=== PATIENT | female | born 1995 | race Asian ===

== ENCOUNTER 2019-09-21 14:20 | Emergency (ER) | payer BC, SELFPAY ==
[2019-09-21 14:34] VITALS: BP 101/76; PULSE 129; RESP 20; TEMP 38.8; O2SAT 99
--- NOTE | 2019-09-21 14:43 | ED.URI ---
HPI - URI/Sore Throat General Chief Complaint: Upper Respiratory Infection Stated Complaint: fever/sore throat/chills/pack Time Seen by Provider: 09/21/19 14:24 Source: patient Mode of arrival: ambulatory Limitations: no limitations History of Present Illness HPI Narrative: 24-year-old female presents to urgent care with complaints of sore throat, enlarged lymph nodes, chills, body aches, fevers, headache, bilateral ear pressure and fatigue for the past 3 days. Patient has been taking [id number] naproxen with little relief. Patient reports that she recently traveled to [place] approximately 1 week ago. Patient reports that she did have a negative COVID screen 2 days ago but feels that the test was inaccurate as she collected it herself at home. Patient reports that she is currently taking Flagyl after having an abnormal papsmear. Patient reports that she also took 500 of Zithromax and an unknown cephalosporin after having abnormal Pap smear. Patient denies sick contacts. Patient denies nasuea, vomiting, diarrhea, dizziness or blurred vision MD elicited complaint: fever, sore throat and other (bilateral ear pain, body aches, headache ) Onset (ago): day(s) (2-3) Consistency: constant Able to tolerate fluids by mouth: Yes Exacerbating factors: swallowing Context: recent travel ([place] 1 week ago ) Treatments prior to arrival: other (Naproxen) Related Data Home Medications Medication Instructions Recorded Confirmed metronidazole 500 mg BID 09/21/19 09/21/19 norethindrone-e.estradiol-iron [Lo 1 tablet DAILY 09/21/19 09/21/19 Loestrin Fe] risperidone 0.5 mg DAILY 09/21/19 09/21/19 Allergies Allergy/AdvReac Type Severity Reaction Status Date / Time Penicillins Allergy Rash Verified 09/21/19 14:38 Review of Systems Review of Systems: All systems reviewed & are unremarkable except as noted in HPI and below Constitutional: Constitutional: Reports chills, Reports fatigue, Reports fever(s) and Denies weakness ENT: Denies dysphagia, Denies vertigo, Denies dizziness, Denies nasal congestion and Reports sore throat Cardiovascular: Cardiovascular: Denies chest pain, Denies rapid heart rate and Denies slow heart rate Respiratory: Respiratory: Denies cough, Denies dyspnea and Denies wheezing Gastrointestinal: Gastrointestinal: Denies abdominal pain, Denies diarrhea, Denies nausea and Denies vomiting Musculoskeletal: Musculoskeletal: Denies back pain Integumentary/Breasts: Skin/Breast: Denies rash Neurologic: Denies vertigo, Denies dizziness, Denies syncope, Reports headache(s), Denies focal weakness and Denies numbness Hematologic/Lymphatic: Hematologic/Lymphatic: Denies easy bruising PMFSH Social History Social History Gender identity (if verbalized by the patient): Female Exam Const: General: healthy appearing, no acute distress and alert Orientation/consciousness: patient oriented x3 HENMT: Ears: external ears normal and TM's normal bilaterally General nose exam: Normal nares present Face and sinus: sinuses nontender Mouth: Yes Normal oral and palatal mucosa present and Yes lip normal Throat: uvula midline Other: Mild swelling, erythema and exudate noted to bilateral tonsils. No peritonsillar abscess noted. Eyes: Pupils: Equal, round and reactive pupils present Neck: Neck: lymphadenopathy bilateral anterior cervical Resp: Effort & Inspection: normal respiratory effort, not labored and not tachypneic Auscultation: clear to auscultation bilaterally, no crackles and no rhonchi Cardio: Rate: not bradycardic and tachycardic Rhythm: regular rhythm Heart sounds: no murmurs Skin: General skin exam: normal color, no jaundice and no pallor Rashes: no rashes Wounds: no wounds Neuro: General: patient oriented x3, moves all extremities and no meningeal signs Extrem: General: normal to inspection Psych: Appearance: grossly normal Mental Status: mental sta
[2019-09-21 14:49] VITALS: TEMP 38.8
[2019-09-21 15:10] VITALS: PULSE 110; RESP 20; TEMP 38.7; O2SAT 100
== END 2019-09-21 15:15 | disposition home or self-care (01) ==
PROVIDERS: Emergency Provider Nurse Practitioner Family; PCP Nurse Practitioner Family
DX: J03.90 Acute tonsillitis, unspecified (principal); Z20.828 Contact with and (suspected) exposure to other viral communicable diseases
CPT/HCPCS: 36416; 86308; 87081; 87880; 99203; G0463